=== PATIENT | female | born 2000 ===

== ENCOUNTER 2023-03-13 08:40 | Day surgery (SDC) | payer OTHER ==
[~2023-03-13] VITALS: Ht 165.1 cm; Wt 99.8 kg
[~2023-03-13 08:40] MED LIST: Ondansetron 4 MG/2 ML VIAL IV PRN
[2023-03-13] MEDS ORDERED: LR 1,000 ML IV ONE (09:15)
[2023-03-13] MEDS ORDERED: Lidocaine PF 2% (20 MG/ML) 5 ML VIAL ONE (10:03)
[2023-03-13] MEDS ORDERED: fentaNYL 50 MCG/ML 2 ML VIAL ONE (10:04)
[2023-03-13 10:35] VITALS: BP 129/77; PULSE 70; TEMP 97.6
[2023-03-13 10:50] VITALS: BP 129/81; PULSE 74
[2023-03-13 11:00] VITALS: BP 132/72; PULSE 70
--- NOTE | 2023-03-13 11:05 | NUR ---
1035 RETURNS TO ROOM 3 PER CART. AWAKE, ALERT. RESP UNLABORED. DENIES NAUSEA, ABD/CHEST PAIN OR DYSPHAGIA. VITAL SIGNS OBTAINED. CALL LIGHT AT SIDE. IN ROOM 1040 DR. SCHMIDT HERE TO VISIT WITH PATIENT 1045 TOLERATES PO JUICE AND ICE CREAM WITHOUT NAUSEA. SWALLOWS WITHOUT DIFFICULTY. DISCHARGE INSTRUCTIONS REVIEWED. PATIENT VERBALIZES UNDERSTANDING. COPY PROVIDED IN DISCHARGE FOLDER 1100 DRESSES SELF
[2023-03-13 14:14] VITALS: BP 117/76; PULSE 77
== END 2023-03-13 11:09 | disposition home or self-care (01) ==
LOC: SDCO 08:40
DX: K29.50 Unspecified chronic gastritis without bleeding (principal); K76.0 Fatty (change of) liver, not elsewhere classified; G47.33 Obstructive sleep apnea (adult) (pediatric); R16.0 Hepatomegaly, not elsewhere classified; R94.5 Abnormal results of liver function studies
CPT/HCPCS: J2704; J3010; J7120